=== PATIENT | male | born 1965 | race Caucasian/White ===

== ENCOUNTER 2025-02-10 16:57 | Inpatient (IN) | payer BC ==
[~2025-02-10] VITALS: Ht 188 cm; Wt 127.9 kg
[~2025-02-10 16:57] MED LIST: OXYACE5T PO
[2025-02-10] MEDS ORDERED: Diphth,Pertuss(Acell),Tet Vac 0.5 ML VIAL IM ONE (17:20)
[2025-02-10] MEDS ORDERED: CeFAZolin Sodium 2,000 MG in NS 100 ML IV ONE (17:20)
[2025-02-10 18:05] LABS: BASOPHILS ABSOLUTE AUTO 0.07 K/mm3 (0.00-0.23); BASOPHILS PERCENT AUTO 1 % (0-2); EOSINOPHILS ABSOLUTE AUTO 0.03 K/mm3 (0.00-0.68); EOSINOPHILS PERCENT AUTO 0 % (0-6); Hematocrit 48.7 % (37.0-53.0); Hemoglobin 16.7 g/dL (13.5-17.5); IMMATURE GRAN ABSOLUTE AUTO 0.03 K/mm3 (0.00-0.10); IMMATURE GRAN PERCENT AUTO 0 % (0-1); LYMPHOCYTES ABSOLUTE AUTO 0.68 K/mm3 (0.84-5.20); LYMPHOCYTES PERCENT AUTO 6 % (21-46); MONOCYTES ABSOLUTE AUTO 0.77 K/mm3 (0.16-1.47); MONOCYTES PERCENT AUTO 7 % (4-13); Mean Corpuscular HGB 28.8 pg (26.0-34.0); Mean Corpuscular HGB Conc 34.3 g/dL (31.5-36.5); Mean Corpuscular Volume 84 fL (80-100); Mean Platelet Volume 9.6 fL (9.1-12.4); NEUTROPHILS ABSOLUTE AUTO 10.05 K/mm3 (1.96-9.15); NEUTROPHILS PERCENT AUTO 86 % (41-73); Platelet Count 261 K/mm3 (150-400); RDW Coefficient Variation 12.7 % (11.7-14.2); RDW Standard Deviation 39.1 fL (35.1-46.3); Red Blood Cell Count 5.79 M/mm3 (4.30-5.90); White Blood Cell Count 11.63 K/mm3 (4.00-11.30)
[2025-02-10 18:29] LABS: C-REACTIVE PROTEIN, EXT RANGE 5.51 mg/dL (0.000-0.300)
[2025-02-10 18:32] LABS: Albumin, Blood 4.1 g/dL (3.4-5.0); Bilirubin, Total 0.8 mg/dL (0.1-1.0); Bun/Creatinine Ratio 24.7 (12.0-20.0); Calcium, Blood 9.7 mg/dL (8.5-10.1); Creatinine, Blood 0.81 mg/dL (0.60-1.20); Globulin, Blood 4.2 g/dL (2.2-4.0); Total Protein, Blood 8.3 g/dL (6.4-8.2)
[2025-02-10] MEDS ORDERED: Ondansetron HCl 2 MG / ML 2ML Vial IV PRN (20:25)
[2025-02-10] MEDS ORDERED: Lactated Ringer's 1,000 ML IV SCH (20:25)
[2025-02-10] MEDS ORDERED: Lactobacil 2-S.Thermo-Bifido 1 1 Cap PO SCH (21:00)
[2025-02-10] MEDS ORDERED: Clindamycin 900mg in D5W 50ML 50 ML IV ONE (21:40)
[2025-02-10 22:12] VITALS: BP 155/98
[2025-02-11 04:55] VITALS: BP 130/82
--- NOTE | 2025-02-11 06:03 | NUR ---
SHIFT SUMMARY PT ADMITTED @ 2210 FOR RIGHT 2ND TOE INFECTED WOUND. PICTURE TAKEN AND PLACED IN CHART, THEN WOUND DRESSED WITH VASELINE GAUZE AND KERLIX. IVF AND IV ANTIBIOTICS PER ORDER. NPO AFTER MIDNIGHT FOR PROBABLE SURGERY TODAY. PT STATES NEUROPATHY TO FEET AND DENIES PAIN. PT SLEPT INTERMITTENTLY DURING THE NIGHT. BED IN LOWEST POSITION, CALL LIGHT WITHIN REACH, SIDERAILS UP X2.
[2025-02-11] MEDS ORDERED: NS 250 ML IV PRN (07:50)
[2025-02-11 07:51] VITALS: BP 134/83
[2025-02-11] MEDS ORDERED: Clindamycin 900mg in D5W 50ML 50 ML IV SCH (08:00)
[2025-02-11] MEDS ORDERED: Acetaminophen 325 MG TABLET PO PRN (08:15)
[2025-02-11] MEDS ORDERED: OxyCODONE HCL 5 MG TAB PO PRN (08:15)
[2025-02-11] MEDS ORDERED: Ondansetron 4 MG SoluTab MM PRN (08:20)
[2025-02-11] MEDS ORDERED: Docusate Sodium/Senna 1 Tab PO PRN (08:20)
[2025-02-11] MEDS ORDERED: Polyethylene Glycol 3350 17 gm PO PRN (08:20)
[2025-02-11] MEDS ORDERED: Enoxaparin 40 MG/0.4 ML SYR SC SCH (09:00)
[2025-02-11] MEDS ORDERED: Insulin Glargine-Yfgn 100 Unit/mL 3 ML SYR SC SCH (09:00)
[2025-02-11] MEDS ORDERED: Insulin Human Lispro 100 Units/ML 3ML Syringe SC SCH ×2 (11:30)
--- NOTE | 2025-02-11 11:48 | NUR ---
RN NOTE MR GUERRA IS OX4. AMBULATING INDEPENDENTLY, TOOK A SHOWER THIS MORNING. RIGHT FOOT REDNESS MARKED WITH PEN AND TOE WOUND REDRESSED. NO PLAN FOR SURGERY TODAY PER DR KRAUSE SO CONSISTANT CARB DIET COMMENCED. DIABETIC EDUCATION DISCUSSION THIS MORNING, PRINT OUT OF EDUCATION GIVEN TO PATIENT AND REVIEW AND QUESTIONS INVITED. MR GUERRA HAS DECREASED SENSATION TO BOTH FEET AND DOES NOT FEEL THE DRESSING BEING PLACED. NO TINGLING TO TOES. BED LOW, CALL LIGHT IN REACH.
[2025-02-11 15:38] VITALS: BP 140/91
--- NOTE | 2025-02-11 16:49 | NUR ---
SHIFT SUMMARY MR GUERRA IS INDEPENDENT TO ABTHROOM/STEADY GAIT. HE DENIES ANY PAIN TO RIGHT FOOT. S/B DR KRAUSE AND WOUND REDRESSED AFTER ASSJAVIER. PLAN FOR NPO AFTER MIDNIGHT TONIGHT FOR TOE AMPUTATION TOMORROW.
[2025-02-11 21:01] VITALS: BP 141/90
[2025-02-12] VITALS (17 sets, daily range): BP systolic 116–137; BP diastolic 69–91
[2025-02-12 05:47] LABS: BASOPHILS ABSOLUTE AUTO 0.07 K/mm3 (0.00-0.23); BASOPHILS PERCENT AUTO 1 % (0-2); EOSINOPHILS ABSOLUTE AUTO 0.15 K/mm3 (0.00-0.68); EOSINOPHILS PERCENT AUTO 2 % (0-6); Hemoglobin 15.7 g/dL (13.5-17.5); IMMATURE GRAN ABSOLUTE AUTO 0.03 K/mm3 (0.00-0.10); IMMATURE GRAN PERCENT AUTO 0 % (0-1); LYMPHOCYTES PERCENT AUTO 17 % (21-46); MONOCYTES ABSOLUTE AUTO 0.85 K/mm3 (0.16-1.47); MONOCYTES PERCENT AUTO 11 % (4-13); Mean Corpuscular HGB 29.3 pg (26.0-34.0); Mean Corpuscular HGB Conc 34.1 g/dL (31.5-36.5); Mean Corpuscular Volume 86 fL (80-100); Mean Platelet Volume 9.8 fL (9.1-12.4); NEUTROPHILS ABSOLUTE AUTO 5.48 K/mm3 (1.96-9.15); NEUTROPHILS PERCENT AUTO 70 % (41-73); Platelet Count 205 K/mm3 (150-400); RDW Standard Deviation 40.6 fL (35.1-46.3); Red Blood Cell Count 5.35 M/mm3 (4.30-5.90); White Blood Cell Count 7.88 K/mm3 (4.00-11.30)
[2025-02-12 06:07] LABS: Albumin, Blood 3.2 g/dL (3.4-5.0); Albumin/Globulin Ratio 0.8 (0.8-1.8); Bilirubin, Total 0.6 mg/dL (0.1-1.0); Bun/Creatinine Ratio 22.1 (12.0-20.0); Calcium, Blood 8.8 mg/dL (8.5-10.1); Creatinine, Blood 0.72 mg/dL (0.60-1.20); Globulin, Blood 4.2 g/dL (2.2-4.0); Magnesium, Blood 1.9 mg/dL (1.6-2.4); Potassium, Blood 3.9 mmol/L (3.5-5.5); Total Protein, Blood 7.4 g/dL (6.4-8.2)
--- NOTE | 2025-02-12 06:38 | NUR ---
SHIFT SUMMARY PT SLEPT INTERMITTENTLY DURING THE NIGHT. DENIES THE NEED FOR PAIN MEDICATION. DRESSING TO RIGHT FOOT C/D/I. PT UP INDEPENDENTLY IN THE ROOM. NPO AFTER MIDNIGHT FOR SURGERY TODAY. IV ANTIBIOTICS CONTINUE PER ORDER. BED IN LOWEST POSITION, CALL LIGHT WITHIN REACH, SIDERAILS UP X2.
[2025-02-12] MEDS ORDERED: MetFORMIN HCl 500 mg PO SCH (08:00)
[2025-02-12] MEDS ORDERED: Ropivacaine 0.5% HCL/PF 5 MG/ML 30ML Vial ONE (13:38)
[2025-02-12] MEDS ORDERED: Lidocaine HCl 1% 30 ML SDV ONE (13:38)
--- NOTE | 2025-02-12 13:47 | NUR ---
NOTE PT TRANSFERED VIA BED TO DAY SURG. PT BEEN NPO.
[2025-02-12] MEDS ORDERED: Lactated Ringer's 1,000 ML IV SCH (13:55)
[2025-02-12] MEDS ORDERED: Bupivacaine 0.25% Epi 1:200000 30 ML Vial ONE (14:22)
[2025-02-12] MEDS ORDERED: propofoL 20 ML IV ONE ×2 (14:27)
--- NOTE | 2025-02-12 19:25 | NUR ---
SHIFT SUMMARY PT A&OX4. PT ADMITTED DUE TO DIABETIC FOOT INFECTION. PT GOT R 2ND TOE AMP TODAY. DRESSING IN PLACE, C/D/I, AND GLENN WRAPPED. PT NON WEIGHT BEARING ON R FOOT. PT IS CONT AND USES URINAL. PT REPORTS NO PAIN/CHEST PAIN/SOB. VSS. PT ON RA. PT HAS ACHS BLOOD SUGAR CHECKS, INSULIN GIVEN FOR COVERAGE. PT IN BED BED IN LOWEST POSITION, CALL LIGHT IN REACH.
[2025-02-13 03:52] VITALS: BP 127/86
[2025-02-13 04:46] LABS: BASOPHILS ABSOLUTE AUTO 0.06 K/mm3 (0.00-0.23); BASOPHILS PERCENT AUTO 1 % (0-2); EOSINOPHILS ABSOLUTE AUTO 0.19 K/mm3 (0.00-0.68); EOSINOPHILS PERCENT AUTO 3 % (0-6); Hematocrit 48.7 % (37.0-53.0); Hemoglobin 16.1 g/dL (13.5-17.5); IMMATURE GRAN ABSOLUTE AUTO 0.02 K/mm3 (0.00-0.10); IMMATURE GRAN PERCENT AUTO 0 % (0-1); LYMPHOCYTES ABSOLUTE AUTO 1.75 K/mm3 (0.84-5.20); LYMPHOCYTES PERCENT AUTO 30 % (21-46); MONOCYTES ABSOLUTE AUTO 0.75 K/mm3 (0.16-1.47); MONOCYTES PERCENT AUTO 13 % (4-13); Mean Corpuscular HGB 28.5 pg (26.0-34.0); Mean Corpuscular HGB Conc 33.1 g/dL (31.5-36.5); Mean Corpuscular Volume 86 fL (80-100); Mean Platelet Volume 9.8 fL (9.1-12.4); NEUTROPHILS ABSOLUTE AUTO 3.13 K/mm3 (1.96-9.15); NEUTROPHILS PERCENT AUTO 53 % (41-73); Platelet Count 211 K/mm3 (150-400); RDW Coefficient Variation 12.8 % (11.7-14.2); RDW Standard Deviation 40.6 fL (35.1-46.3); Red Blood Cell Count 5.65 M/mm3 (4.30-5.90)
--- NOTE | 2025-02-13 04:48 | NUR ---
GIFTS OFFICER SUMMARY PT A/OX4. PLEASANT AND COOPERATIVE. PT ABLE TO MAKE NEEDS KNOWN. NO ACUTE CHANGES. PT IS POST OPERATIVE FROM 2ND TOE AMPUTATION/RIGHT FOOT. INCISION NOT VISUALIZED. DRESSING IS CDI T/O THE SHIFT. PT SENSATION/CIRCULATION INTACT AT BASELINE. PT DENIES PAIN AND DENIES NEED FOR PAIN CONTROL. PT HAS HAPPY AFFECT AND PLEASANT. PT HAS REMAINED NWB ON RIGHT FOOT. PT IS ABLE TO TRANSFER AND AMBULATE WITH FWW W/O PUTTING WEIGHT TO THE RIGHT FOOT. CALL LIGHT ACCESSIBLE.
[2025-02-13 05:06] LABS: Calcium, Blood 9.1 mg/dL (8.5-10.1); Creatinine, Blood 0.75 mg/dL (0.60-1.20); Magnesium, Blood 1.9 mg/dL (1.6-2.4); Potassium, Blood 3.9 mmol/L (3.5-5.5)
[2025-02-13 07:58] VITALS: BP 133/77
[2025-02-13] MEDS ORDERED: Insulin Glargine-Yfgn 100 Unit/mL 3 ML SYR SC SCH (09:00)
[2025-02-13] MEDS ORDERED: METF500 PO (13:25)
[2025-02-13] MEDS ORDERED: SENNA LAXATIVE8.6 MG PO (13:27)
[2025-02-13] MEDS ORDERED: CLINDAMYCIN HC300 MG PO (13:29)
[2025-02-13] MEDS ORDERED: BASAGLAR K100 UNIT/1 SC (13:30)
--- NOTE | 2025-02-13 17:21 | NUR ---
COMPLETED DETAILED TEACHING ABOUT DIABETES AND CHECKING SUGAR LEVELS AND ADMINISTERING INSULIN, PAIN CONTROL. AND WEIGHT BEARING STATUS. PT VERBALIZED UNDERSTANDING AND LEFT VIW WHEELCHAIR TO OWN CAR
[2025-02-14] MEDS ORDERED: Losartan Potassium 25 MG Tab PO SCH (09:00)
== END 2025-02-13 15:02 | disposition home or self-care (01) | DRG 617 ==
LOC: ER 16:57 → MEDS 20:20 → ERHOLD 20:20 → MEDS 22:10
PROVIDERS: Emergency Medicine; Hospitalist; Podiatrist Foot & Ankle Surgery; ADMIT Student in an Organized Health Care Education/Training Program
PROC: 0Y6R0Z1 Detachment at Right 2nd Toe, High, Open Approach (ICD-10-PCS; principal; 2025-02-12 14:00)
DX: E11.628 Type 2 diabetes mellitus with other skin complications (principal); E11.52 Type 2 diabetes mellitus with diabetic peripheral angiopathy with gangrene; E87.1 Hypo-osmolality and hyponatremia; M86.8X7 Other osteomyelitis, ankle and foot; E11.621 Type 2 diabetes mellitus with foot ulcer; E11.69 Type 2 diabetes mellitus with other specified complication; E11.40 Type 2 diabetes mellitus with diabetic neuropathy, unspecified; E78.5 Hyperlipidemia, unspecified; E11.65 Type 2 diabetes mellitus with hyperglycemia; L03.031 Cellulitis of right toe; Z88.8 Allergy status to other drugs, medicaments and biological substances; Z79.891 Long term (current) use of opiate analgesic
CPT/HCPCS: 36415; 73620; 80048; 80053; 82947; 83036; 83605; 83735; 85025; 86140; 87040; 90471; 90715; 96365; 97116; 97161; 97530; 99284-25; A9270; J0690; J1650; J1815; J2704; J2795; J7050; J7120